=== PATIENT | female | born 1985 | race Two or more races ===

== ENCOUNTER 2018-02-17 19:25 | Inpatient (IN) | payer OTHER ==
[~2018-02-17] VITALS: Ht 165.1 cm; Wt 93.0 kg
[2018-03-07] MEDS ORDERED: PRENATAL TABLE1 EAC1 PO (04:19)
== END 2018-03-09 12:55 | disposition home or self-care (01) | DRG 775 ==
LOC: LDR 02-23 12:30 → OB/GYN 03-07 07:58 → LDR 03-10 12:30
PROC: 10E0XZZ Delivery of Products of Conception, External Approach (ICD-10-PCS; principal; 2018-03-07)
PROC: 0KQM0ZZ Repair Perineum Muscle, Open Approach (ICD-10-PCS; 2018-03-07)
PROC: 10907ZC Drainage of Amniotic Fluid, Therapeutic from Products of Conception, Via Natural or Artificial Opening (ICD-10-PCS; 2018-03-07)
PROC: 4A033R1 Measurement of Arterial Saturation, Peripheral, Percutaneous Approach (ICD-10-PCS; 2018-03-07)
PROC: 4A1HXCZ Monitoring of Products of Conception, Cardiac Rate, External Approach (ICD-10-PCS; 2018-03-07)
DX: O70.1 Second degree perineal laceration during delivery (principal); Z37.0 Single live birth; O24.420 Gestational diabetes mellitus in childbirth, diet controlled; Z3A.39 39 weeks gestation of pregnancy

== ENCOUNTER 2022-11-10 15:08 | Outpatient (CLI) | payer OTHER ==
[~2022-11-10 15:08] MED LIST: PRENATAL TABLE1 EAC1 PO
== END 2022-11-10 16:46 | disposition home or self-care (01) ==
LOC: PRENATAL 15:08
PROVIDERS: ATTEND Obstetrics & Gynecology Maternal & Fetal Medicine
DX: O36.80X0 Pregnancy with inconclusive fetal viability, not applicable or unspecified (principal); O09.529 Supervision of elderly multigravida, unspecified trimester

== ENCOUNTER 2023-01-12 09:40 | Outpatient (CLI) | payer OTHER | END 2023-01-12 10:55 | disposition home or self-care (01) | LOC: PRENATAL 09:40 | PROVIDERS: ATTEND Obstetrics & Gynecology Maternal & Fetal Medicine | DX: O35.9XX0 Maternal care for (suspected) fetal abnormality and damage, unspecified, not applicable or unspecified (principal); O35.3XX0 Maternal care for (suspected) damage to fetus from viral disease in mother, not applicable or unspecified; O09.529 Supervision of elderly multigravida, unspecified trimester; Z3A.29 29 weeks gestation of pregnancy ==

== ENCOUNTER 2023-04-10 09:26 | Outpatient (CLI) | payer OTHER | END 2023-04-10 10:30 | disposition home or self-care (01) | LOC: PRENATAL 09:26 | PROVIDERS: ATTEND Obstetrics & Gynecology Maternal & Fetal Medicine | DX: O26.849 Uterine size-date discrepancy, unspecified trimester (principal); O35.3XX0 Maternal care for (suspected) damage to fetus from viral disease in mother, not applicable or unspecified; O36.8199 Decreased fetal movements, unspecified trimester, other fetus; O09.529 Supervision of elderly multigravida, unspecified trimester; Z3A.33 33 weeks gestation of pregnancy ==

== ENCOUNTER 2023-05-12 13:45 | Inpatient (IN) | payer OTHER ==
[~2023-05-12] VITALS: Ht 165.1 cm; Wt 97.5 kg
== END 2023-05-27 12:23 | disposition home or self-care (01) | DRG 807 ==
LOC: LDR 05-25 11:25 → OB/GYN 05-25 11:25
PROVIDERS: ADMIT Obstetrics & Gynecology; ATTEND Obstetrics & Gynecology
PROC: 10E0XZZ Delivery of Products of Conception, External Approach (ICD-10-PCS; principal; 2023-05-25)
PROC: 4A1HXCZ Monitoring of Products of Conception, Cardiac Rate, External Approach (ICD-10-PCS; 2023-05-25)
DX: O80 Encounter for full-term uncomplicated delivery (principal); Z37.0 Single live birth; Z3A.39 39 weeks gestation of pregnancy; Z20.822 Contact with and (suspected) exposure to COVID-19